=== PATIENT | female | born 1955 | race African-American/Black ===

== ENCOUNTER 2017-07-11 02:20 | Emergency (ER) | payer MEDICAID ==
[~2017-07-11] VITALS: Ht 154.9 cm; Wt 72.6 kg
[2017-07-11] MEDS ORDERED: EPINEPHrine HCL 1 MG/1 ML AMP SC ONE (07:00)
[2017-07-11] MEDS ORDERED: diphenhdrAMINE HCL 50 MG/1 ML VL IM ONE (07:00)
[2017-07-11 07:21] VITALS: BP 139/67
== END 2017-07-11 07:40 | disposition home or self-care (01) ==
LOC: ER 02:20
DX: T78.40XA Allergy, unspecified, initial encounter (principal); E78.5 Hyperlipidemia, unspecified; E11.9 Type 2 diabetes mellitus without complications
CPT/HCPCS: 96372; 99284; J0171; J1200